=== PATIENT | male | born 1945 | race Hispanic/Latino ===

== ENCOUNTER 2017-06-05 13:55 | Inpatient (IN) | payer MEDICARE ==
[2017-06-05 14:27] LABS: #Lymphocytes 1.4 thou/uL (1.20-3.40); #Monocytes 0.8 thou/uL (0.11-0.59); #Neutrophils 5.3 thou/uL (1.40-6.50); %Basophils 0.1 % (0.0-1.0); %Eosinophils 0.6 % (0.0-10.0); %Lymphocytes 19.1 % (21.0-51.0); Hematocrit 37.1 % (42.0-52.0); Mean Platelet Volume 7.5 fL (7.4-10.4); Red Blood Cell (RBC) Count 3.88 mill/uL (4.70-6.10); White Blood Cell (WBC) Count 7.6 thou/uL (4.8-10.8)
[2017-06-05] MEDS ORDERED: Adacel (T-DAP) 0.5 ML VIAL ONE (14:49)
[2017-06-05 14:50] LABS: ALT (SGPT) 17 U/L (8-55); AST (SGOT) 26 U/L (5-34); Alkaline Phosphatase 75 U/L (40-150); Anion Gap 13 mmol/L (10-20); BUN (Urea Nitrogen) 28 mg/dL (8.4-25.7); Bilirubin, Total 0.5 mg/dL (0.2-1.2); Calc. Creatinine Clearance 0 mL/min (70-130); Calcium 8.9 mg/dL (7.8-10.44); Carbon Dioxide 24 mmol/L (23-31); Chloride 112 mmol/L (98-107); Estimated GFR-MDRD 65; Protein, Total 6.5 g/dL (5.8-8.1)
--- NOTE | 2017-06-05 15:03 | RAD ---
LEFT KNEE FOUR VIEWS: HISTORY: Cattle stepped on back of left lower leg. Left leg pain. FINDINGS: There are postop changes of total knee arthroplasty. No acute fracture or dislocation is identified . No perihardware lucency is identified to suggest loosening. POS: [facility]
--- NOTE | 2017-06-05 15:06 | RAD ---
THREE VIEWS LEFT ANKLE: CLINICAL HISTORY: Injury. Pain. Avulsion. FINDINGS: There is osteoarthritis. No fracture or dislocation. No abnormal widening of the ankle mortise. T here is soft tissue irregularity. IMPRESSION: 1. No acute fracture of the left ankle. 2. Soft tissue irregularity may relate to laceration. Correlate clinically. POS: [facility]
--- NOTE | 2017-06-05 15:06 | RAD ---
LEFT LEG 2 VIEWS: HISTORY: Cattle stepped on back of the left lower leg, left leg pain. FINDINGS/IMPRESSION: There are postop changes of total knee arthroplasty in good position and alignment. The left tibia and fibula are intact. A soft tissue defect/laceration is seen in the posterolateral aspect of the distal leg. POS: [facility]
[2017-06-05] MEDS ORDERED: Clindamycin 150 MG CAP ONE (15:11)
[2017-06-05] MEDS ORDERED: metroNIDAZOLE 500 MG in Premix Bag 1 BAG IVPB SCH ×2 (16:00→18:00)
[2017-06-05] MEDS ORDERED: Ondansetron ODT 4 MG TAB SL PRN (17:11)
[2017-06-05] MEDS ORDERED: Ondansetron HCl/PF 4 MG/2 ML Vial IVP PRN ×3 (17:11→21:19)
[2017-06-05] MEDS ORDERED: Acetaminophen 325 MG TAB PO PRN (17:11)
[2017-06-05] MEDS ORDERED: Dextrose 50% Abboject 50 ML SYRINGE SLOW IVP PRN (17:34)
[2017-06-05] MEDS ORDERED: Dextrose 5% in Water 1,000 ML IV PRN (17:34)
[2017-06-05] MEDS ORDERED: Ondansetron ODT 4 MG TAB PO PRN (17:34)
[2017-06-05] MEDS ORDERED: Promethazine HCl 25 MG/ML VIAL IM PRN (17:34)
[2017-06-05] MEDS ORDERED: Morphine Sulfate 2 MG/ML SYRINGE IVP PRN (17:34)
[2017-06-05] MEDS: Ketorolac Tromethamine 30 MG/ML VIAL IVP SCH ×2 (19:17→23:59)
[2017-06-05] MEDS: Sodium Chloride 0.9% 1,000 ML IV SCH ×2 (19:17)
[2017-06-05] MEDS ORDERED: Promethazine HCl 25 MG/ML VIAL ONE (19:55)
[2017-06-05] MEDS ORDERED: Fentanyl 100 MCG/2 ML VIAL ONE (19:55)
[2017-06-05] MEDS ORDERED: Propofol 200 MG/20 ML VIAL ONE (20:16)
[2017-06-05] MEDS ORDERED: Ondansetron HCl/PF 4 MG/2 ML Vial ONE (20:16)
[2017-06-05] MEDS ORDERED: Lidocaine 1% PF 5 ML VIAL ONE (20:16)
[2017-06-05] MEDS ORDERED: Ketorolac Tromethamine 30 MG/ML VIAL ONE (20:16)
[2017-06-05] MEDS ORDERED: PHENYLEPHRINE-NS 100 MCG/ML 10 ML SYRINGE ONE (20:16)
[2017-06-05] MEDS ORDERED: ePHEDrine/0.9% NaCl/PF SYRINGE 50 mg/10 ml ONE (20:16)
[2017-06-05] MEDS ORDERED: HYDROcodone/Acetaminophen 10/325 mg Tablet PO PRN (20:23)
[2017-06-05] MEDS ORDERED: traMADol HCl 50 MG TAB PO PRN (20:23)
[2017-06-05] MEDS ORDERED: Levofloxacin 500 mg/D5W 100 ml Premix Bag ONE (20:27)
[2017-06-05] MEDS ORDERED: Meperidine HCl/PF 25 MG/ML VIAL SLOW IVP PRN (21:19)
[2017-06-05] MEDS ORDERED: Promethazine HCl 25 MG/ML VIAL SLOW IVP PRN (21:19)
[2017-06-05] MEDS ORDERED: HYDROmorphone 2 MG/ML VIAL SLOW IVP PRN (21:19)
[2017-06-05] MEDS: Famotidine/PF 20 mg/2ml Vial SLOW IVP SCH (22:11)
--- NOTE | 2017-06-06 00:52 | CON ---
DATE OF CONSULTATION: 06/05/2017 PRINCIPAL DIAGNOSIS: Avulsion laceration to the left calf. HISTORY OF PRESENT ILLNESS: This is a pleasant 71-year-old man who was working with his calf today and the calf stepped into his leg causing a large avulsion of skin from his calf muscle. His neurol ogical exam, he is neurologically intact. He has a large distally based flap with dusky tissue on t he flap. The flap appears to be nonviable. There was contamination. Plan is for irrigation in the emergency room and then sterile dressing will be applied following that irrigation and debridement in the OR today in 48 hours.
[2017-06-06] MEDS: Sodium Chloride 0.9% 1,000 ML IV SCH ×3 (01:28→17:19)
[2017-06-06] MEDS: Ketorolac Tromethamine 30 MG/ML VIAL IVP SCH ×3 (05:30→19:01)
[2017-06-06 05:37] LABS: Anion Gap 10 mmol/L (10-20); BUN (Urea Nitrogen) 24 mg/dL (8.4-25.7); Calc. Creatinine Clearance 77 mL/min (70-130); Calcium 7.7 mg/dL (7.8-10.44); Carbon Dioxide 23 mmol/L (23-31); Chloride 111 mmol/L (98-107); Estimated GFR-MDRD 82
[2017-06-06 05:39] LABS: Hematocrit 29.3 % (42.0-52.0); Mean Platelet Volume 7.7 fL (7.4-10.4); Neutrophil 80 % (42-75); Red Blood Cell (RBC) Count 3.04 mill/uL (4.70-6.10); White Blood Cell (WBC) Count 8.7 thou/uL (4.8-10.8)
--- NOTE | 2017-06-06 06:42 | HP ---
This is Desmond Singleton PA-C, dictating for Domenico Lennon DO DATE OF ADMISSION: 06/05/2017 TIME OF ENCOUNTER: 02:30 p.m. ATTENDING PHYSICIAN: Dr. Domenico Lennon. CONSULTING PHYSICIAN: Dr. Rubio. HISTORY OF PRESENT ILLNESS: This is a 71-year-old male, who presented via EMS for a left leg avulsi on in the left lower extremity due to a calf/cow stepping on the back of his leg. Bleeding was cont rollable on scene. Patient was given 4 morphine and 4 Zofran en route. The patient only describes a little amount of pain, the patient is primarily Congolese speaking only. PAST MEDICAL HISTORY: Includes hyperlipidemia, gastritis, and BPH. MEDICATIONS: He does report he takes Flomax, but unsure of the other medications. ALLERGIES: No known allergies at this time. PAST SURGICAL HISTORY: Bilateral knee replacement, back surgery and prostate surgery. SOCIAL HISTORY: The patient denies any current tobacco, does occasional alcohol use. No illicit ot her drugs. REVIEW OF SYSTEMS: All 10 systems reviewed otherwise stated in HPI were negative. PHYSICAL EXAMINATION: VITAL SIGNS: Blood pressure 132/94, respiratory rate 18, and temperature 97.7. Pain is 4/10, 96% o n room air. GENERAL: No acute distress. HEENT: Atraumatic, normocephalic. Pupils are equal, round, and reactive to light. NECK: No JVD, no masses. No cervical spine tenderness. PULMONARY: Clear bilaterally via auscultation. CARDIOVASCULAR: S1, S2, regular rate and rhythm. ABDOMEN: Soft, nontender, nondistended. BACK: Unremarkable. EXTREMITIES: Upper extremities are 5/5 strength. Normal inspection. Lower extremity shows a left lower extremity has a pedal pulses intact, flap avulsed posterior distal aspect of the left leg. Mu ltiple tendons, muscle seen, also grossly contaminated. No active bleeding noted. NEUROLOGIC: GCS of 15, grossly intact. LABORATORY DATA: CBC showed WBC 7.6, hemoglobin 11.9, hematocrit 37.1, platelet count 122. Bo[employer] Station Operator karishma: Sodium 145, potassium 4.5, chloride 112, bicarbonate 24, BUN 28, creatinine 1.11. RADIOLOGIC FINDINGS: No acute fracture of the tibia fibula x-ray. Knee x-ray, no fracture. Ankle x-ray, no fracture. ASSESSMENT AND PLAN: This is a 71-year-old male with status post livestock injury with large avulsi on to posterior leg. The patient will be admitted to the surgical floor, will have operative washou t and closure of the left lower extremity wound by Dr. Rubio, who will initiate antibiotics. Tetan us has been given and pain control will be optimized with p.o. and IV analgesics and restart his amy e medications when appropriate. The patient has agreed to the admission. The patient has been seen and agreed with the above plan by Dr. Domenico Lennon at the time of dictation.
--- NOTE | 2017-06-06 06:59 | OP ---
06/06/2017PREOPERATIVE DIAGNOSIS: Severely contaminated open wound, left leg. POSTOPERATIVE DIAGNOSIS: Severely contaminated open wound, left leg. SURGEON: Marquez Rubio M.D. ANESTHESIA: General. TOURNIQUET: Not used. PROCEDURE IN DETAIL: The patient received Ancef, metronidazole and added Levaquin to the mix preope ratively. The left leg was prepped and draped in the usual sterile fashion. I used a scrub brush a nd to meticulously pick the visible debris from the wound. I debrided a lot of dysvascular ti ssue. There was some fatty tissue that appeared to be necrotic. A short saphenous vein was complet mayra occluded in necrotic. The sural nerve appeared to be intact, but severely contused. This was a distally based flap, so I amputated proximal portion of the flap, which had no bleeding, but I left all bleeding tissue behind this to create a much smaller flap and preoperatively 10 liters of pulsa tile lavage were used then packed the wound open. Plan is return to the operating room in 36 hours.
[2017-06-06] MEDS: metroNIDAZOLE 500 MG in Premix Bag 1 BAG IVPB SCH ×4 (09:48→16:58)
[2017-06-06] MEDS: Famotidine/PF 20 mg/2ml Vial SLOW IVP SCH ×2 (09:53→21:29)
[2017-06-06] MEDS: Tamsulosin HCl 0.4 MG CAP PO SCH (09:53)
[2017-06-06] MEDS: Enoxaparin Sodium 30 MG/0.3 ML SYRINGE SC SCH (21:29)
[2017-06-06] MEDS: Atorvastatin Calcium 40 MG TAB PO SCH (21:29)
[2017-06-07] MEDS: Ketorolac Tromethamine 30 MG/ML VIAL IVP SCH (01:09)
[2017-06-07] MEDS: metroNIDAZOLE 500 MG in Premix Bag 1 BAG IVPB SCH ×3 (01:12→15:29)
[2017-06-07] MEDS: Sodium Chloride 0.9% 1,000 ML IV SCH ×3 (01:13→15:29)
[2017-06-07] MEDS ORDERED: Promethazine HCl 25 MG/ML VIAL ONE (07:38)
[2017-06-07] MEDS ORDERED: metroNIDAZOLE 500 MG/100 ML BAG ONE (08:05)
[2017-06-07] MEDS ORDERED: Lidocaine 1% PF 5 ML VIAL ONE (08:12)
[2017-06-07] MEDS ORDERED: Ketorolac Tromethamine 30 MG/ML VIAL ONE (08:12)
[2017-06-07] MEDS ORDERED: Propofol 200 MG/20 ML VIAL ONE (08:12)
[2017-06-07] MEDS ORDERED: Glycopyrrolate 0.2 MG/ML 5 ML SYRINGE ONE (08:12)
[2017-06-07] MEDS ORDERED: Ondansetron HCl/PF 4 MG/2 ML Vial ONE (08:12)
[2017-06-07] MEDS ORDERED: PHENYLEPHRINE-NS 100 MCG/ML 10 ML SYRINGE ONE (08:12)
[2017-06-07] MEDS ORDERED: ePHEDrine/0.9% NaCl/PF SYRINGE 50 mg/10 ml ONE ×2 (08:12)
[2017-06-07] MEDS ORDERED: Promethazine HCl 25 MG/ML VIAL SLOW IVP PRN (09:21)
[2017-06-07] MEDS ORDERED: Morphine Sulfate 2 MG/ML SYRINGE SLOW IVP PRN (09:21)
[2017-06-07] MEDS ORDERED: Ondansetron HCl/PF 4 MG/2 ML Vial IVP PRN (09:21)
[2017-06-07] MEDS ORDERED: Meperidine HCl/PF 25 MG/ML VIAL SLOW IVP PRN (09:21)
[2017-06-07] MEDS: Tamsulosin HCl 0.4 MG CAP PO SCH (12:20)
[2017-06-07] MEDS: Docusate 100 MG CAP PO SCH (12:20)
[2017-06-07] MEDS: Senokot 8.6 MG TAB PO SCH (12:20)
[2017-06-07] MEDS: Famotidine/PF 20 mg/2ml Vial SLOW IVP SCH ×2 (12:21→21:23)
--- NOTE | 2017-06-07 15:16 | OP ---
TYPE OF PROCEDURE: Irrigation and debridement of right leg, removing skin and muscle. SURGEON: Marquez Rubio M.D. ANESTHESIA: General. BLOOD LOSS: Minimal. SPECIMEN: None. DRAINS: None. COMPLICATIONS: None. DESCRIPTION OF PROCEDURE: The patient placed in prone position. He was already on IV antibiotics. I sharply debrided most of the flap of tissue which was nonviable. I removed some necrotic fat pro ximally and distally. I exposed the area between the deep and superficial posterior compartments of the posterior leg. There was no purulence. All wounds were very clean. There was no foul smell a nd no significant discharge. After sharply debriding, I irrigated copiously. My hope was to be abl e to close some tissue over the Achilles tendon, but there is exposed Achilles tendon without the pe ritenon intact. Plan at this time is for wound VAC tomorrow. We will consult Dr. Homero ac or options on closure.
[2017-06-07] MEDS: Enoxaparin Sodium 30 MG/0.3 ML SYRINGE SC SCH (21:19)
[2017-06-07] MEDS: Atorvastatin Calcium 40 MG TAB PO SCH (21:19)
[2017-06-08] MEDS: metroNIDAZOLE 500 MG in Premix Bag 1 BAG IVPB SCH ×3 (00:42→17:38)
[2017-06-08 05:16] LABS: #Eosinphils 0.1 thou/uL (0.0-0.7); #Lymphocytes 1.9 thou/uL (1.20-3.40); #Monocytes 0.8 thou/uL (0.11-0.59); %Basophils 0.2 % (0.0-1.0); %Eosinophils 1.7 % (0.0-10.0); %Lymphocytes 27.4 % (21.0-51.0); %Monocytes 11.6 % (0.0-10.0); Hematocrit 25.5 % (42.0-52.0); Mean Platelet Volume 7.9 fL (7.4-10.4); Red Blood Cell (RBC) Count 2.66 mill/uL (4.70-6.10); White Blood Cell (WBC) Count 6.8 thou/uL (4.8-10.8)
[2017-06-08 05:22] LABS: Anion Gap 10 mmol/L (10-20); BUN (Urea Nitrogen) 12 mg/dL (8.4-25.7); Calc. Creatinine Clearance 84 mL/min (70-130); Calcium 7.8 mg/dL (7.8-10.44); Carbon Dioxide 21 mmol/L (23-31); Chloride 111 mmol/L (98-107); Estimated GFR-MDRD Greater than 90; Magnesium 1.5 mg/dL (1.6-2.6); Phosphorus 2.4 mg/dL (2.3-4.7)
[2017-06-08] MEDS: Tamsulosin HCl 0.4 MG CAP PO SCH (08:49)
[2017-06-08] MEDS: Senokot 8.6 MG TAB PO SCH (08:50)
[2017-06-08] MEDS: Docusate 100 MG CAP PO SCH (08:50)
[2017-06-08] MEDS: Famotidine/PF 20 mg/2ml Vial SLOW IVP SCH ×2 (08:51→20:41)
[2017-06-08] MEDS ORDERED: Potassium Phosphate 20 MMOL, Magnesium Sulfate 3 GM in Sodium Chloride 0.9% 250 ML 250 ML IVPB SCH (09:30)
[2017-06-08] MEDS ORDERED: Magnesium Sulfate 3 GM in Sodium Chloride 0.9% 100 ML IVPB SCH (09:30)
[2017-06-08] MEDS ORDERED: Potassium Phosphate 20 MMOL in Sodium Chloride 0.9% 250 ML 250 ML IVPB SCH (09:30)
[2017-06-08 12:44] VITALS: BMI 25.2
--- NOTE | 2017-06-08 14:57 | PRG-2 ---
DATE OF SERVICE: 06/08/2017 LOCATION: [facility] SUBJECTIVE: This is a 71-year-old male who presented via EMS for left leg avulsion of the left lower extremity due to a calf/cow stepping on the back of [place]. The patient is on hospital day #4. He is now postop day #1 from an irrigation and debridement of the right leg with removal of the skin and muscle tissue. No acute events overnight. The patient's vital signs were stable. The patient endorsed adequate pain control. The patient endorsed difficulty urinating and had a Chau placed yesterday. Patient was started on Avodart in addition to tamsulosin and Urology consult was made. PHYSICAL EXAMINATION: VITAL SIGNS: Temperature 97.7 degrees Fahrenheit, pulse 83, respiratory rate 14 , O2 sat 92% on room air, blood pressure 138/80. GENERAL: Alert and oriented x2, in no apparent distress. HEENT: Pupils equal, round, and reactive to light and accommodation. Extraocular muscles intact. PULMONARY: Equal rise and fall of the chest. No increased work of breathing. CARDIOVASCULAR: Regular rate and rhythm. ABDOMEN: Nondistended. EXTREMITIES: The left lower extremity with intact pedal pulses with the flap avulsed posterior distal aspect of the left leg. No active bleeding noted. NEUROLOGIC: GCS of 15. LABORATORY DATA: White blood cell count 6.8, hemoglobin 8.4, hematocrit 25.5, platelets 95. Chemistry: Sodium 138, potassium 3.7, chloride 111, bicarbonate 21, BUN 12, creatinine 0.83, glucose 99, calcium 7.8, phosphorus 2.4, magnesium 1.5. ASSESSMENT: This is a 71-year-old male status post left lower extremity injury and now status post postop day #1 from a left lower extremity irrigation and debridement. PLAN: The patient has [place] q.4 hours p.r.n. for pain. The patient also has Ultram 100 mg q.6 hours p.r.n. for pain. The patient is currently on Ancef 1 gram q.8 hours scheduled. The patient's bowel regimen is currently Colace 100 mg p.o. daily scheduled. The patient is also on senna 2 tabs p.o. daily scheduled for constipation. The patient was started on Avodart 0.5 mg p.o. daily scheduled this morning due to inability to urinate on his own yesterday after the Chau was discontinued, the patient's Chau was replaced overnight. The patient currently is on Avodart and Flomax and with plan to discontinue the Chau today and consult Urology for assistance with pains, urinary retention. The patient is also on levofloxacin and metronidazole for empiric antibiotic treatment. Dr. Lennon was present at bedside with the patient and agrees with the above assessment and plan. ELBA
[2017-06-08] MEDS: Atorvastatin Calcium 40 MG TAB PO SCH (20:41)
[2017-06-08] MEDS: Enoxaparin Sodium 30 MG/0.3 ML SYRINGE SC SCH (20:42)
[2017-06-09] MEDS: metroNIDAZOLE 500 MG in Premix Bag 1 BAG IVPB SCH ×3 (00:03→15:21)
[2017-06-09 06:09] LABS: Anion Gap 8 mmol/L (10-20); BUN (Urea Nitrogen) 8 mg/dL (8.4-25.7); Calc. Creatinine Clearance 85 mL/min (70-130); Calcium 7.7 mg/dL (7.8-10.44); Carbon Dioxide 25 mmol/L (23-31); Chloride 107 mmol/L (98-107); Estimated GFR-MDRD Greater than 90; Magnesium 2.1 mg/dL (1.6-2.6); Phosphorus 2.9 mg/dL (2.3-4.7)
--- NOTE | 2017-06-09 06:40 | CON ---
DATE OF CONSULTATION: 06/08/2017 CONSULTING PHYSICIAN: Tory Jacobs MD CONSULTED PHYSICIAN: Heriberto Wilson M.D., with Urology. REASON FOR CONSULTATION: Urinary retention. HISTORY OF PRESENT ILLNESS: Mr. Harper is a 71-year-old, male, who presented to the hospital with a severe avulsion injury on his left leg that required surgical debridement, fixation, and antibiotics and washout. Postoperatively, the patient was not able to urinate and ended up with the Chau catheter. I have been consulted for his urinary retention. On my discussion with the patient, he states that he is currently comfortable with his catheter. He does have a significant urologic history and has an urologist in [place] where he normally lives. His urologist, Dr. Huber, had previously seen him for BPH with irritative voiding symptoms. He initially had been placed on Flomax and then subsequently Avodart for obstructive urinary symptoms. This had helped only minimally and the patient did have a lot of urgency and frequency. He underwent a TURP, but unfortunately did not have significant improvement in his symptoms. He did not notice much improvement in his urine stream nor the urgency and frequency. He has nocturia every one hour with daytime urgency and frequency every one hour. He was then subsequently started on Myrbetriq 50 mg once a day and he stated this did help with his urgency and frequency symptoms, but he still gets up at night about every 2 hours now instead and still has daytime urgency symptoms. This is where he had left off with his urologist when the accident had occurred while he was working here. While in the hospital, he had been on the Flomax, and he was recently started by the primary team on Avodart again. He is currently still receiving pain medication and is relatively immobilized from his significant surgery on his leg. ALLERGIES: None. HOME MEDICATIONS: 1. Flomax 0.4 mg p.o. once a day. 2. Myrbetriq 50 mg once a day. 3. Avodart 0.5 mg p.o. daily. 4. Omeprazole 40 mg once daily. 5. Atorvastatin 40 mg once daily. PAST MEDICAL HISTORY: 1. Hyperlipidemia. 2. Gastritis. 3. Benign prostatic hypertrophy. PAST SURGICAL HISTORY: 1. Bilateral knee replacements. 2. Back surgery. 3. TURP. 4. Recent washout and fixation of large avulsion injury on this hospitalization. FAMILY HISTORY: Noncontributory. SOCIAL HISTORY: Patient denies any tobacco, alcohol or illicit drug use. He works as a rancher. REVIEW OF SYSTEMS: A 12-point review of systems was reviewed and otherwise negative other than what was commented on the HPI, specifically with his urinary symptoms. PHYSICAL EXAMINATION: VITAL SIGNS: Temperature 98.8, pulse 80, respirations 16, blood pressure 113/69 , saturation 97% on room air. GENERAL: No apparent distress, communicative and alert, well nourished, well developed, appears stated age. HEENT: Normocephalic, atraumatic. Sclerae are nonicteric. Pupils are symmetric and round. Extraocular movements intact. Trachea midline. CARDIOVASCULAR: Regular rate and rhythm. Normal S1 and S2. Symmetric pulses in the upper extremities. PULMONARY: Clear to auscultation anteriorly, symmetric expansion of lungs, nonlabored breathing. ABDOMEN: Soft, nontender, nondistended. Positive bowel sounds. No peritoneal signs. No masses. No hepatosplenomegaly. EXTREMITIES: The left extremity is casted and wrapped in dressing. The dressing was left intact. The right leg demonstrates a well-healed knee scar. There does appear to be edema in the left lower extremity. Upper extremities had full range of motion without joint deformities or joint erythema noted. NEUROLOGIC: Cranial nerves II through XII grossly intact. No focal sensory or motor deficits identified. There is sensation of the left leg at the toes, but full examination was not performed given the patient's recent surgery. GENITOURINARY: Nonfocal penis with catheter in place with clear yellow urine. SIL was deferred. SKIN: Warm, dry, good turgor. No rashes or lesions. Left leg could not be examined secondary to wrap. PSYCHIATRIC: Alert and oriented x3. Appropriate mood and affect for the situation. LABORATORY EVALUATION: The full sets of labs are in the [place] system, which I have reviewed. Of note, the patient's white count is 6.8 with hemoglobin of 8.4, creatinine is 0.83. ASSESSMENT AND PLAN: This is a 71-year-old, male with a history of benign prostatic hypertrophy with significant urgency and frequency, currently on Flomax, Avodart and Myrbetriq. Myrbetriq is probably not necessary at the current time given the patient does have a Chau catheter in. We would recommend continuation of Flomax and Avodart at the current time. We would recommend continuation of the patient's catheter at the current time as well as he has recently out of surgery as well as continuing on pain medication and relatively immobilized. The further he gets out from surgery as well as improvement in mobility and decrease in pain medication usage, the patient will stand a better chance of voiding on his own. We would recommend continuation of the catheter for at least 1 week at which time if he is discharged from the hospital, he can follow up with his urologist in [place], which I have advised him to do, to make a followup appointment for a voiding trial with him. If for some reason the patient is still here after a week, then I will plan to do his voiding trial in the hospital. If he is able to urinate, then we will leave the catheter out. If he is not able to urinate adequately, we will have to replace the catheter and he will need to follow up with his urologist in [place]. Given the patient's prior history of transurethral resection of the prostate, it is not likely that he has any obstruction causing his urinary retention, but likely he has decreased bladder contractility secondary to multifactorial components including constipation, narcotic pain usage, immobility and recent surgery. Patient is fine with the plan. SUMMARY OF RECOMMENDATIONS: 1. Continue catheter for a week. 2. If the patient is discharged at that time, he can follow up in [place] with his urologist for a voiding trial. 3. If the patient is still in the hospital, then I will see him for a voiding trial while in the hospital. 4. Continue on Flomax and Avodart. Myrbetriq can be held at this time. 5. I will reevaluate the patient in a week if he is still here, otherwise notify me if there are any further concerns or problems with the patient. ELBA
--- NOTE | 2017-06-09 06:53 | PRG ---
DATE OF SERVICE: 06/08/2017 SUBJECTIVE: The patient is in the hospital now after two debridements of a contaminated wound to in clude possible loss of skin. He has multiple photos of the incision. When I went to try to evaluat e him, he did not want to have this done. PHYSICAL EXAMINATION: The patient has minimal soft tissue swelling around the distal leg. His Achi lles tendon of the first 10 cm is completely intact and there is no skin loss, but after this, there is mild skin loss on the medial side of the lower leg with exposed Achilles tendon, that is on the lateral side, but there is no exposed tendon. Skin appears to be somewhat tenuous although debrided and may have difficulty with just primary closure depending on what technique we use. ASSESSMENT AND RECOMMENDATIONS: Large wound, posterior leg: Recommend that I have a look on his VAC dressing changes. He was not happy with me touching his leg today.
[2017-06-09] MEDS: Senokot 8.6 MG TAB PO SCH (08:05)
[2017-06-09] MEDS: Docusate 100 MG CAP PO SCH (08:05)
[2017-06-09] MEDS: Dutasteride 0.5 MG CAP PO SCH (08:05)
[2017-06-09] MEDS: Tamsulosin HCl 0.4 MG CAP PO SCH (08:06)
[2017-06-09] MEDS ORDERED: Dutasteride 0.5 MG CAP PO SCH (09:00)
--- NOTE | 2017-06-09 12:35 | PRG-2 ---
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 The patient is postop day #2 from irrigation and debridement of right leg with removal of the skin and muscle tissue. No acute events overnight. Pain was adequately controlled this morning. The patient had ambulated this morning with minor pain. Patient's vital signs are stable. Urology consult was placed yesterd ay which recommended continuing Avodart and Flomax. They also recommended continuing the Chau for 1 week and if the patient is still in the hospital at that time they will see the patient again, if not, they recommend the patient follow up with his urologist in [place]. They also recommended hold ing Myrbetriq. PHYSICAL EXAMINATION: VITAL SIGNS: Within normal limits. GENERAL: Alert and oriented x3, no apparent distress. HEENT: PERRLA. EOMI. RESPIRATORY: Equal rise of chest. No increased work with breathing. CARDIOVASCULAR: Regular rate and rhythm. ABDOMEN: Soft, nondistended, nontender. EXTREMITIES: Left lower leg with intact pedal pulses with a wound VAC placed on the left lower leg. NEUROLOGIC: GCS of 15. MUSCULOSKELETAL: Able to ambulate with mild pain. LABORATORY DATA: None done today. ASSESSMENT: A 71-year-old man status post left lower extremity injury, now status post day 2 from l eft lower extremity irrigation and debridement. PLAN: The patient has [place] q.4 hours p.r.n. for pain. The patient also has Ultram 100 mg q.6 h. p.r.n. for pain. The patient is currently on Ancef q.8 h. scheduled. The patient's bowel regimen i ncludes Colace scheduled. Patient also has Senna for constipation. The patient has Avodart and Claudio max for retention and the patient currently has a Chau. We recommend keeping the Chau for 1 week per Urology recommendation. In addition to the Ancef the patient is also on metronidazole, levoflox acin for antibiotic treatment. Dr. Lennon was present at bedside with the patient and agrees with the above assessment and plan.
[2017-06-09] MEDS ORDERED: Bisacodyl 10 MG SUPP PR PRN (13:54)
[2017-06-09] MEDS: Famotidine/PF 20 mg/2ml Vial SLOW IVP SCH ×2 (14:48→21:14)
[2017-06-09] MEDS: Atorvastatin Calcium 40 MG TAB PO SCH (21:14)
[2017-06-09] MEDS: Senokot S 8.6-50 MG TAB PO SCH (21:14)
[2017-06-09] MEDS: Enoxaparin Sodium 30 MG/0.3 ML SYRINGE SC SCH (21:18)
[2017-06-10] MEDS: metroNIDAZOLE 500 MG in Premix Bag 1 BAG IVPB SCH ×3 (00:12→15:57)
[2017-06-10] MEDS: Polyethylene Glycol 3350 17 GM Packet PO SCH (08:24)
[2017-06-10] MEDS: Senokot S 8.6-50 MG TAB PO SCH ×2 (08:24→22:39)
[2017-06-10] MEDS: Docusate 100 MG CAP PO SCH (08:24)
[2017-06-10] MEDS: Tamsulosin HCl 0.4 MG CAP PO SCH (08:25)
[2017-06-10] MEDS: Dutasteride 0.5 MG CAP PO SCH (08:25)
[2017-06-10] MEDS: Famotidine/PF 20 mg/2ml Vial SLOW IVP SCH ×2 (08:25→22:40)
--- NOTE | 2017-06-10 11:37 | PRG-2 ---
DATE OF SERVICE: 06/10/2017 LOCATION: [facility]. SUBJECTIVE: A 71-year-old male admitted for left leg avulsion of the left lower extremity secondary to cow [place] calf [place] the [place], now postop day #3 from irrigation and debridement. No acute events overnight. The patient's vital signs were stable. The patient denies pain. Patien t tolerating p.o. Patient ambulating on wound. Patient has a Chau and will keep the Chau for 1 w [place] as of yesterday per Urology recommendations. OBJECTIVE: VITAL SIGNS: Temperature 98.2 degrees Fahrenheit, pulse 84, respiratory rate 14, O2 sat 97% on room air and blood pressure 146/81. GENERAL: Alert and oriented x3, in no apparent distress. HEENT: PERRLA, EOMI. RESPIRATORY: Equal rise and fall of the chest. No increased work of breathing. CARDIOVASCULAR: Regular rate and rhythm. ABDOMEN: Soft, nondistended and nontender. EXTREMITIES: Left lower leg with wound VAC. NEUROLOGIC: GCS of 15. LABORATORY DATA: Labs from yesterday 06/09, sodium 136, potassium 4, chloride 107, bicarb 25, BUN 8 , creatinine 0.82, glucose 86, calcium 7.7, mag 2.1, phos 2.9, AST and ALT 26 and 17. CBC from 06/08, white blood cell 6.8, hemoglobin 8.4, hematocrit 25.5 and platelets 95. ASSESSMENT: A 71-year-old man status post left lower extremity injury, now he is postop day #3 from a left lower extremity irrigation during debridement. PLAN: Continue current pain regimen. The patient denies pain this morning. Continue bowel regimen . Continue to encourage ambulation. Continue Avodart and Flomax and Chau in place for retention p er Urology recommendations. Recommend continuing antibiotics. We will continue to follow with Dr. Green recommendations. Dr. Lennon was present at bedside with the patient and agrees with the [facility] assessment and plan.
[2017-06-10] MEDS ORDERED: Lidocaine 1% (PF) 30 ML VIAL ONE (19:02)
[2017-06-10] MEDS ORDERED: Sodium Chloride 0.9% 60 ML ONE (19:02)
[2017-06-10] MEDS ORDERED: Bupivacaine PF 0.5% 30 ML VIAL ONE (19:02)
[2017-06-10] MEDS ORDERED: Bacitracin Zinc Ointment 30 gm TUBE ONE (19:03)
[2017-06-10] MEDS ORDERED: Thrombin 5000 UNITS/5 ML VIAL ONE (19:03)
[2017-06-10] MEDS ORDERED: Fentanyl 100 MCG/2 ML VIAL ONE ×4 (19:32→21:22)
[2017-06-10] MEDS ORDERED: Midazolam HCl 2 mg/2 ml Vial ONE (19:32)
[2017-06-10] MEDS ORDERED: Propofol 200 MG/20 ML VIAL ONE (19:42)
[2017-06-10] MEDS ORDERED: Lidocaine 2% PF 10 ML AMP (For Epidural Use) ONE (19:42)
[2017-06-10] MEDS ORDERED: Glycopyrrolate 0.2 MG/ML 5 ML SYRINGE ONE (19:42)
[2017-06-10] MEDS ORDERED: Promethazine HCl 25 MG/ML VIAL SLOW IVP PRN (20:59)
[2017-06-10] MEDS ORDERED: Promethazine HCl 25 MG/ML VIAL IM PRN (20:59)
[2017-06-10] MEDS ORDERED: Meperidine HCl/PF 25 MG/ML VIAL SLOW IVP PRN (20:59)
[2017-06-10] MEDS ORDERED: Ondansetron HCl/PF 4 MG/2 ML Vial IVP PRN (20:59)
[2017-06-10] MEDS: Atorvastatin Calcium 40 MG TAB PO SCH (22:39)
[2017-06-10] MEDS: Enoxaparin Sodium 30 MG/0.3 ML SYRINGE SC SCH (22:40)
[2017-06-11] MEDS: metroNIDAZOLE 500 MG in Premix Bag 1 BAG IVPB SCH ×2 (00:54→08:47)
[2017-06-11 06:04] LABS: #Eosinphils 0.3 thou/uL (0.0-0.7); #Lymphocytes 1.5 thou/uL (1.20-3.40); #Monocytes 0.7 thou/uL (0.11-0.59); #Neutrophils 3.8 thou/uL (1.40-6.50); %Eosinophils 4.3 % (0.0-10.0); %Lymphocytes 23.7 % (21.0-51.0); %Monocytes 11.4 % (0.0-10.0); Hematocrit 28.2 % (42.0-52.0); Mean Platelet Volume 7.2 fL (7.4-10.4); Red Blood Cell (RBC) Count 2.94 mill/uL (4.70-6.10); White Blood Cell (WBC) Count 6.2 thou/uL (4.8-10.8)
[2017-06-11 06:22] LABS: Anion Gap 11 mmol/L (10-20); BUN (Urea Nitrogen) 11 mg/dL (8.4-25.7); Calc. Creatinine Clearance 85 mL/min (70-130); Calcium 8.3 mg/dL (7.8-10.44); Carbon Dioxide 24 mmol/L (23-31); Chloride 106 mmol/L (98-107); Estimated GFR-MDRD Greater than 90; Magnesium 1.6 mg/dL (1.6-2.6); Phosphorus 3.2 mg/dL (2.3-4.7)
--- NOTE | 2017-06-11 07:08 | OP ---
DATE OF PROCEDURE: 06/10/2017 PREOPERATIVE DIAGNOSIS: Right leg open wound approximately 22 x 10 cm. POSTOPERATIVE DIAGNOSIS: Right leg open wound approximately 22 x 10 cm. PROCEDURE PERFORMED: 1. Debridement of wound, intermediate depth 12485 using the following techniques: A. Instruments - Hominy blade, 15-blade knife, tenotomy scissors 12 cm long and 30 degree up curvin g, Adson's, and curettes. B. Technique excisional. C. Material included depth down to and including the tendon, removal of fat, subcutaneous tissue, s ome skin where there was some wound edge necrosis only, no deep necrosis, and a few particles consis tent with possible particulate matter that can only be seen on the loupe magnification. D. There were no complications. 2. Evacuation of hematoma: A 3 cm x 3 cm hematoma found in the medial aspect deep to the Achilles tendon without evidence of active bleeder, which was removed via debridement using the same instrume nts listed above and in part irrigation. Total irrigation was 6 liters of normal saline with Pulsav ac pressure with antibiotic bacitracin inside, 50,000 units per liter. 3. Application of VAC dressing to a wound that was after debridement 25 cm x 10 cm, or 250 cm2, cov ered with white sponge over the exposed tendon and black sponge over the white and the remaining por tion of the wound with excellent suction and no leak potential. SURGEON: Homero Green M.D. ANESTHESIA: General LMA technique, Tunisian Anesthesia. DESCRIPTION OF PROCEDURE: After successful general endotracheal anesthesia, the limb was prepped an d draped. The patient was placed prone, had the leg prepped and draped with the VAC off and we imme diately began to inspect the underlying flaps. There was a moderate amount of wound edge necrosis, especially laterally and superiorly. This was resected using a combination of 11-blade knife, tenot martina scissors, and then was lifted up completely and denuded fat was debrided. Under the superior as pect of the wound edge, we found a small amount of particulate matter, but no gross abscess or infec tion. Under the Achilles tendon, just distal to the musculotendinous junction, we found anterior to this a hematoma about 3 cm x 3 cm, so we irrigated and debrided this, inspected, found no active bl eeder, but we did place a clip on a small bleeder that passed right through the area as well. Then, after we had done the wound edge debridement of about 1 cm involving the entire superior and l ateral aspect of the wound, an area of wound edge necrosis was seen that was approximately 2 cm long by 4 mm deep at the inferior medial edge of the wound just off the tendon and just above the area o f the hematoma. This was resected with sharp knife. Then, we finished irrigation with a total of 6 liters of Pulsavac fluid, obtained hemostasis, there is no bleeding from the area of previous hemat chuy. Applied a white sponge over the exposed tendon, which is an area now approximately 3 cm wide a nd approximately 11 cm long while remaining portion of wound is completely devoid of exposed tendon. A black sponge was applied over this with excellent suction and the patient left the operating chad m with no evidence of anesthetic or operative complication. In the recovery room, the patient was s table with no evidence of neurovascular compromise or excessive pain. Discussed with his to in clude the plan, based on their request, that they go to the [facility] and we have arranged transfer to [facility] where plastic surgeon, Dr. Frazier, will evaluate the patient but will be admitted primarily to the transfer system of [facility] to an senior associate. This should o ccur tomorrow morning.
--- NOTE | 2017-06-11 07:59 | DIS ---
ORTHOPEDIC/HAND SURGERY TRANSFER NOTE DATE OF ADMISSION: 06/05/2017 DATE OF TRANSFER: 06/11/2017 ADMISSION DIAGNOSES: Complex open wound, left posterior calf, which was in the mid portion to the d istal one third with exposed Achilles tendon and contamination with dirt or fecal matter from barn[address] or farm environment injury. DISCHARGE DIAGNOSES: Complex open wound, left posterior calf, which was mid portion to the distal o ne third with exposed Achilles tendon and contamination with dirt or fecal matter from barnyard or f arm environment injury. HOSPITAL COURSE: The patient was admitted initially to Trauma Service and Dr. Marquez Rubio was cons ulted. Because of the gross contamination of the wound, he immediately underwent debridement within 6 hours of route to the hospital. Initial debridement left a wound that had all viable tissue, and he was placed on appropriate dual antibiotics. He remained on trauma service for this soft tissue injury where he was also attended to by Dr. Domenico Lennon. He was placed on Lovenox anticoagulant, which he remained on during his entire [facility] the [facility]. He was also managed with Chau catheter, beginning on post-admission day #2 because of urin samy retention. The patient then underwent second debridement approximately 30 hours after first debridement 017, where initially a skin flap that appeared viable was resected. He had slightly more particular matter, but did not have elevated white count, so he was debrided, underwent VAC application, he rios d wound care management to continue the VAC dressing changes every other day and consult with Dr. Darryn atkins, hand surgeon for possible coverage. Dr. Green evaluate the patient on the evening of the 06/08/2017, and then on the 06/10/2017 sched uled to have the patient wound debrided and possible skin graft coverage, but upon discussing with t he family in the room the morning of the surgery on 06/10/2017, the family when explained that he wo uld need possible 2 stage surgery because of exposed tendon or may even need a plastic evaluation or even delay final coverage if he has any gross contamination, request that the wound just be clean a nd then he will be transferred to a facility nearby he lives in [place], [place] for more definitive c are. Thus we agreed to have debridement of his wound, intraoperative VAC application, and this was scheduled and accomplished on the day of the 06/10/2017. Also, however, Dr. Green and discharge planning team made calls to try to get the patient admitte d to a [facility] hospital and were unsucessful at hospitals to include [facility] in [facility], [place]. We were able to obtain conversation at approximately [address] Frazier, plastic surgeon at [facility] in [facility], who received conversati on with Dr. Green's description and decided that he would evaluate the patient as a consult via i npatient transfer to hospital [facility]. Discharge planning then went into effect, Dr Jose Green informed the patient's and the patient before the surgery and reminded the patient's afterwards, they agreed to this transfer for final definitive care. FINAL DISCHARGE DIAGNOSES: 1. Complex wound, open, approximately 25 x 10 cm now. 2. Urinary retention, x1 episode, treated with Chau catheterization while here in the hospital. FINAL RECOMMENDATION: Transfer to [facility] for final definitive care to include consider ation of skin graft alone or skin graft plus or minus Integra graft, Integra graft now with second s tage or large flap coverage based on plastic surgical evaluation at [facility].
[2017-06-11] MEDS: Tamsulosin HCl 0.4 MG CAP PO SCH (08:50)
[2017-06-11] MEDS: Dutasteride 0.5 MG CAP PO SCH (08:50)
[2017-06-11] MEDS: Docusate 100 MG CAP PO SCH (08:50)
[2017-06-11] MEDS: Famotidine/PF 20 mg/2ml Vial SLOW IVP SCH (08:51)
[2017-06-11] MEDS: Senokot S 8.6-50 MG TAB PO SCH (08:51)
[2017-06-11] MEDS: Polyethylene Glycol 3350 17 GM Packet PO SCH (08:51)
[2017-06-11] MEDS ORDERED: Mag-Al Plus 1200 MG/1200 MG/120 MG/30 ML UDCUP PO PRN (09:21)
--- NOTE | 2017-06-11 10:59 | PRG-2 ---
DATE OF SERVICE: 06/11/2017 LOCATION: [facility] SUBJECTIVE: A 71-year-old man admitted for a left leg avulsion of left lower extremity [place], now postop day #1 from second debridement of wound and wound VAC placem ent. The patient was taken to the OR last night for debridement and wound VAC placement. The patient glenn erated the procedure well. The patient had no acute events overnight. The patient currently has a Chau. This is day 3 of 7 of Chau placement and is receiving Avodart and Flomax per Urology recomm endations. OBJECTIVE: VITAL SIGNS: Temperature 98.7 degrees Fahrenheit, pulse 88, respiratory rate 16, O2 sat 94% on room air, blood pressure 142/84. PHYSICAL EXAMINATION: GENERAL: Alert and oriented x3, no apparent distress. HEENT: PERRLA, EOMI. RESPIRATORY: Equal rise and fall of the chest: No increased work of breathing. CARDIOVASCULAR: Regular rate and rhythm. ABDOMEN: Soft, nondistended, nontender. EXTREMITIES: Left lower leg with wound VAC. NEUROLOGIC: Alert and oriented x3. GCS of 15. No focal neurologic deficits. LABORATORY DATA: CBC shows white blood cell count 6.2, hemoglobin 9.4, hematocrit 28.2, platelet co unt 147. Chemistry: Sodium 137, potassium 4, chloride 106, bicarbonate 24, BUN 11, creatinine 0.82, glucose 106, calcium 8.3, phosphorus 3.2, magnesium 1.6. ASSESSMENT AND PLAN: A 71-year-old man status post left lower extremity injury now postop day #1 fr om second debridement of wound with wound VAC placement. PLAN: Current plan is for patient to transfer to [facility] in [place] for skin grafting o f the wound. As soon as a bed is available the patient will be transferred. Transfer Service is on board. At this time continue Chau. The patient is currently day 3 of 7 of the Chau. Recommend continuing Avodart and Flomax. Recommend follow up with urologist at 7 day andrea of having Chau in place to further evaluate the plan in regards to patient's urinary retention. Dr. Lennon was present at bedside with the patient and agrees with the above assessment and plan.
[2017-06-11 12:38] VITALS: BP 133/83; TEMP 98.5
[2017-06-11] MEDS ORDERED: metroNIDAZOLE 500 MG TAB PO SCH (15:00)
--- NOTE | 2017-06-13 09:51 | PQF ---
SHERIF DEVINE APOLONIA TURNER [id number] CLINICAL DOCUMENTATION CLARIFICATION FORM: POST DISCHARGE PLEASE FAX RESPONSE BACK TO [phone] Addendum to original discharge summary date: ____ Late entry note date: __ DATE: 06/13/2017 ATTN: Homero Green M.D The following CLINICAL INDICATORS - SIGNS / SYMPTOMS are present in the medical record: Procedure Performed: Debridement of wound, intermediate [facility] [id number]....... Material included deph down to and including the tendon, removal of fat, subcutaneous tissue, some skin where there was some wound edge necrosis only....... RISKS: Open wound of right lower leg due to being stepped on by a cow. TREATMENTS: Debridement Please provide a response below if a more specific term indicating a diagnosis and/or acuity level for this condition can be identified. Please exercise your independent, professional judgment in responding to the clarification form. Clinical indicators are provided at the top of this form for your review. . For continuity of documentation, please document condition throughout progress notes and discharge summary. Thank you. [ ] Present on Admission (POA): [ ] Yes [ ] No [ ] Unable to determine [ ] Excisional Debridement: (Definition) Excisional debridement is the surgical removal or cutting away of devitalized tissue, necrosis, or slough. Excisional debridement can be performed in the operating room, emergency room, or at the patient's bedside. ([facility], Fourth 1987) [ ] Excised [ ] Removed [ ] Cut away [ ] Other: Depth / layer: (deepest layer of debridement): [ ] Skin/SubQ[ ] Fascia [ ] Muscle [ ] Bone Margins: (please specify): / x x Instruments used: [ ] Scissors [ ] Scalpel[ ] Curette[ ] Tweezers/ forceps [ ] Soft tissue clipper[ ] Other: [ ] Non-excisional Debridement: (Removal by flushing, brushing, or washing) ( Definition) Nonexcisional debridement is non-operative brushing, irrigating, scrubbing, or washing of devitalized tissue, necrosis, or slough. Nonexcisional debridement includes snipping of tissue followed by Acuna tank therapy. Nonexcisional debridement may be performed by a nurse, therapist, or physician. ([facility], 1987) [ ] Incision and Drainage only (No Debridement): Depth:[ ] Skin & Sub Q only[ ] Into soft tissue [ ] Escharectomy [ ] Does not apply to this patient [ ] Unable to determine [ ] Other diagnosis: _ Physician/Provider Signature Date Time (This form is maintained as a part of the permanent medical record) 2014 [employer]. All Rights Reserved Obchandra [email or web address]
--- NOTE | 2017-06-13 10:07 | PQF ---
SHERIF DEVINE APOLONIA TURNER [id number] SURG B- 3310 [id number] CLINICAL DOCUMENTATION CLARIFICATION FORM: POST DISCHARGE PLEASE FAX RESPONSE BACK TO [phone] Addendum to original discharge summary date: ____ Late entry note date: __ DATE: 06/13/2017 ATTN: Marquez Rubio M.D The following CLINICAL INDICATORS - SIGNS / SYMPTOMS are present in the medical record: Type of Procedure: Irrigation and debridement of right leg, removing skin and muscle. RISKS: Open wound of leg due to being stepped on by a cow TREATMENTS: Irrigation and debridement Please provide a response below if a more specific term indicating a diagnosis and/or acuity level for this condition can be identified. Please exercise your independent, professional judgment in responding to the clarification form. Clinical indicators are provided at the top of this form for your review. . For continuity of documentation, please document condition throughout progress notes and discharge summary. Thank you. [ ] Present on Admission (POA): [ ] Yes [ ] No [ ] Unable to determine [ ] Excisional Debridement: (Definition) Excisional debridement is the surgical removal or cutting away of devitalized tissue, necrosis, or slough. Excisional debridement can be performed in the operating room, emergency room, or at the patient's bedside. ([facility], Fourth 1987) [ ] Excised [ ] Removed [ ] Cut away [ ] Other: Depth / layer: (deepest layer of debridement): [ ] Skin/SubQ[ ] Fascia [ ] Muscle [ ] Bone Margins: (please specify): / x x Instruments used: [ ] Scissors [ ] Scalpel[ ] Curette[ ] Tweezers/ forceps [ ] Soft tissue clipper[ ] Other: [ ] Non-excisional Debridement: (Removal by flushing, brushing, or washing) ( Definition) Nonexcisional debridement is the non-operative brushing, irrigating , scrubbing, or washing of devitalized tissue, necrosis, or slough. Nonexcisional debridement includes snipping of tissue followed by Acuna tank therapy. Nonexcisional debridement may be performed by a nurse, therapist, or physician. ([facility], 1987) [ ] Incision and Drainage only (No Debridement): Depth:[ ] Skin & Sub Q only[ ] Into soft tissue [ ] Escharectomy [ ] Does not apply to this patient [ ] Unable to determine [ ] Other diagnosis: _ Physician/Provider Signature Date Time (This form is maintained as a part of the permanent medical record) 2014 [employer]. All Rights Reserved [email or web address]
--- NOTE | 2017-06-13 10:21 | PQF ---
SHERIF DEVINE APOLONIA TURNER [id number] SURG B- 3310 [id number] CLINICAL DOCUMENTATION CLARIFICATION FORM: POST DISCHARGE PLEASE FAX RESPONSE BACK TO [phone] Addendum to original discharge summary date: ____ Late entry note date: __ DATE: 06/13/17 ATTN: Marquez Rubio MD The following CLINICAL INDICATORS - SIGNS / SYMPTOMS are present in the medical record: Op Report 06/05/17 I debrided a lot of dysvascular tisssue. ....so I amputateed proximal portion of the flap...... RISKS: Severly contaminated open wound, left leg TREATMENTS: Debridement Please provide a response below if a more specific term indicating a diagnosis and/or acuity level for this condition can be identified. Please exercise your independent, professional judgment in responding to the clarification form. Clinical indicators are provided at the top of this form for your review. . For continuity of documentation, please document condition throughout progress notes and discharge summary. Thank you. [ ] Present on Admission (POA): [ ] Yes [ ] No [ ] Unable to determine [ ] Excisional Debridement: (Definition) Excisional debridement is the surgical removal or cutting away of devitalized tissue, necrosis, or slough. Excisional debridement can be performed in the operating room, emergency room, or at the patient's bedside. ([facility], Fourth 1987) [ ] Excised [ ] Removed [ ] Cut away [ ] Other: Depth / layer: (deepest layer of debridement): [ ] Skin/SubQ[ ] Fascia [ ] Muscle [ ] Bone Margins: (please specify): / x x Instruments used: [ ] Scissors [ ] Scalpel[ ] Curette[ ] Tweezers/ forceps [ ] Soft tissue clipper[ ] Other: [ ] Non-excisional Debridement: (Removal by flushing, brushing, or washing) ( Definition) Nonexcisional debridement is the non-operative brushing, irrigating , scrubbing, or washing of devitalized tissue, necrosis, or slough. Nonexcisional debridement includes snipping of tissue followed by Acuna tank therapy. Nonexcisional debridement may be performed by a nurse, therapist, or physician. ([facility], 1987) [ ] Incision and Drainage only (No Debridement): Depth:[ ] Skin & Sub Q only[ ] Into soft tissue [ ] Escharectomy [ ] Does not apply to this patient [ ] Unable to determine [ ] Other diagnosis: _ Physician/Provider Signature Date Time (This form is maintained as a part of the permanent medical record) 2014 [employer]. All Rights Reserved Obchandra [email or web address]
== END 2017-06-11 15:55 | disposition short-term general hospital (02) | DRG 908 ==
LOC: ERS 13:55 → SJJU 14:35
PROVIDERS: ADMIT Surgery; ATTEND Surgery
PROC: 0JDQ0ZZ Extraction of Right Foot Subcutaneous Tissue and Fascia, Open Approach (ICD-10-PCS; 2017-06-07)
PROC: 0JDQ0ZZ Extraction of Right Foot Subcutaneous Tissue and Fascia, Open Approach (ICD-10-PCS; 2017-06-07)
PROC: 0JDQ0ZZ Extraction of Right Foot Subcutaneous Tissue and Fascia, Open Approach (ICD-10-PCS; principal; 2017-06-10)
DX: S88.112A Complete traumatic amputation at level between knee and ankle, left lower leg, initial encounter (principal); T81.4XXA Infection following a procedure, initial encounter; R33.9 Retention of urine, unspecified; L76.82 Other postprocedural complications of skin and subcutaneous tissue; Z96.653 Presence of artificial knee joint, bilateral; W55.29XA Other contact with cow, initial encounter; Y93.K9 Activity, other involving animal care; Y92.9 Unspecified place or not applicable; Y83.8 Other surgical procedures as the cause of abnormal reaction of the patient, or of later complication, without mention of misadventure at the time of the procedure; Y92.234 Operating room of hospital as the place of occurrence of the external cause
CPT/HCPCS: 36415; 80048; 80053; 83735; 84100; 85025; 90471; 90715; 96365; 96375; A4216; G0390; G8978-GP-CK; G8979-GP-CJ; G8987-GO-CJ; G8988-GO-CI; J0690; J1170; J1650; J1885; J1956; J2001; J2250; J2270; J2405; J2550; J2704; J3010; J3475; J3490; J7050; S0020; S0028

== ENCOUNTER 2024-06-29 12:34 | Outpatient (CLI) | payer MEDICARE | END 2024-06-29 12:35 | disposition home or self-care (01) | LOC: RAD 12:34 | PROVIDERS: ATTEND Family Medicine | DX: M25.552 Pain in left hip (principal); M47.816 Spondylosis without myelopathy or radiculopathy, lumbar region; M47.817 Spondylosis without myelopathy or radiculopathy, lumbosacral region; M25.752 Osteophyte, left hip; M25.751 Osteophyte, right hip; M16.0 Bilateral primary osteoarthritis of hip; M89.9 Disorder of bone, unspecified; M25.852 Other specified joint disorders, left hip; M25.851 Other specified joint disorders, right hip | CPT/HCPCS: 72100; 72170 ==

== ENCOUNTER 2025-08-22 10:03 | Outpatient (CLI) | payer MEDICARE | END 2025-08-22 10:04 | disposition home or self-care (01) | LOC: MRI 10:03 | PROVIDERS: ATTEND Surgery Vascular Surgery | DX: L97.929 Non-pressure chronic ulcer of unspecified part of left lower leg with unspecified severity (principal); M62.562 Muscle wasting and atrophy, not elsewhere classified, left lower leg; R93.7 Abnormal findings on diagnostic imaging of other parts of musculoskeletal system; S89.92XS Unspecified injury of left lower leg, sequela ==